=== PATIENT | male | born 1980 | race Caucasian/White ===

== ENCOUNTER 2017-05-14 10:23 | Emergency (ER) | payer SELFPAY ==
[2017-05-14] MEDS ORDERED: Diphtheria,Pertussis(Acell),Tetanus Vaccine 0.5 ML SDV IM ONE (10:28)
[2017-05-14] MEDS ORDERED: Morphine 2 MG/ML Syringe IVPUSH ONE ×2 (10:33→10:51)
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
[2017-05-14 11:16] VITALS: BP 119/76
[2017-05-14] MEDS ORDERED: HYDROmorphone 1 MG/ML Syringe IVPUSH ONE (11:33)
[2017-05-14] MEDS ORDERED: Ondansetron 4 MG/2 ML SDV IV ONE (11:36)
[2017-05-14] MEDS ORDERED: Bacitracin Oint 1 GM U/D Packet TOP ONE (11:49)
[2017-05-14] MEDS ORDERED: Lidocaine 1% 30 ML SDV INJECT ONE (11:49)
== END 2017-05-14 13:12 | disposition home or self-care (01) ==
LOC: DL.ED 10:23
DX: S02.80XB Fracture of other specified skull and facial bones, unspecified side, initial encounter for open fracture (principal); W22.8XXA Striking against or struck by other objects, initial encounter; Z23 Encounter for immunization
CPT/HCPCS: 12011; 70486; 90471; 90715; 96374; 96375; 99284; J1170; J2270; J2405